=== PATIENT | female | born 1935 | race Caucasian/White ===

== ENCOUNTER 2021-05-04 05:32 | Observation (INO) | payer OTHER ==
[~2021-05-04] VITALS: Ht 162.6 cm; Wt 98.6 kg
[~2021-05-04 05:32] MED LIST: BACTROBAN OINT22 GM EXT; CEFUROXIME500 MG PO; LISINOPRIL5 MG PO; LOPRESSOR 25 MG25 MG PO; OXYCODONE HCL E10 MG PO; PREGABALIN200 MG PO
[2021-05-04 06:30] LABS: RED BLOOD COUNT 4.52 M/UL (4.00-5.10); WHITE BLOOD COUNT 9.5 K/UL (4.5-11.0)
[2021-05-04 06:52] LABS: BUN/CREATININE RATIO 25 (0-10)
[2021-05-04] MEDS ORDERED: AMBIEN10 MG PO (10:27)
[2021-05-04] MEDS ORDERED: LINZESS145 MCG PO (11:10)
[2021-05-04] MEDS ORDERED: FUROSEMIDE40 MG PO (11:10)
[2021-05-04] MEDS ORDERED: DULOXETINE HCL60 MG PO (11:11)
[2021-05-04] MEDS ORDERED: METOPROLOL TART25 MG PO (11:13)
[2021-05-04] MEDS ORDERED: HYDROCODON-ACE1 EAC6 PO (11:14)
[2021-05-04] MEDS ORDERED: NAMENDA10 MG PO (15:03)
[2021-05-05 04:23] LABS: HEMOGLOBIN 15.8 gm/dl (12.3-15.3); WHITE BLOOD COUNT 9.4 K/UL (4.5-11.0)
[2021-05-05 04:47] LABS: RED BLOOD COUNT 4.98 M/UL (4.00-5.10)
[2021-05-05] MEDS ORDERED: CEFUROXIME250 MG PO (09:38)
== END 2021-05-05 13:12 | disposition home or self-care (01) ==
LOC: ER1 05:32 → CDU 10:17 → M/S 19:42
PROVIDERS: Physician Assistant; Physician Assistant Medical; ADMIT Internal Medicine
DX: T40.2X1A Poisoning by other opioids, accidental (unintentional), initial encounter (principal); R40.4 Transient alteration of awareness; R41.0 Disorientation, unspecified; G89.29 Other chronic pain; M79.7 Fibromyalgia; I10 Essential (primary) hypertension; Z96.652 Presence of left artificial knee joint; N30.00 Acute cystitis without hematuria; N39.0 Urinary tract infection, site not specified; Z20.822 Contact with and (suspected) exposure to COVID-19; J98.11 Atelectasis
CPT/HCPCS: 36415; 36600; 51702; 70450; 71045; 72125; 72170; 73030; 80048; 80053; 80307; 81001; 82550; 82553; 82803; 83605; 83735; 83874; 84484; 85025; 85027; 87040; 87077; 87086; 87186; 96374; 96375; 99285; G0378; J0696; J1885; J2310; U0002